=== PATIENT | male | born 1990 | race Caucasian/White ===

== ENCOUNTER 2020-03-04 09:07 | Emergency (ER) | payer OTHER ==
[2020-03-04] MEDS ORDERED: Metoclopramide 10 MG/2 ML SDV IVPUSH ONE (09:22)
[2020-03-04] MEDS ORDERED: HYDROmorphone 0.5 MG/0.5 ML Syringe IVPUSH ONE (09:22)
--- NOTE | 2020-03-04 09:29 | EDM.PDOC ---
ED HPI GENERAL MEDICAL PROBLEM - General Chief Complaint: Abdominal Pain Stated Complaint: VOMITING AND ABDOMINAL PAIN Time Seen by Provider: 03/04/20 09:24 Source of Information: Reports: Patient History Limitations: Reports: No Limitations - History of Present Illness INITIAL COMMENTS - FREE TEXT/NARRATIVE: 29-year-old male presents to the ED with recurrent nausea and vomiting. He states illness started on , March 02. Vomited throughout the day and he was seen at [facility] in [place] ER where he was given IV fluids and Zofran. He states he did better yesterday although he did not have much of an appetite he did keep down one hot dog. He had a normal bowel movement this morning without blood. Emesis is dark bilious in color. Pain is primarily in the epigastrium and lower retrosternal area from vomiting so much. Does not believe that he got into any bad food. No fever chills. No cough or sputum production no sinus congestion to suggest COVID-19 illness. Onset: Sudden Onset Date: 03/02/20 (Nausea and vomiting almost all day . Treated with IV fluids and Zofran in [facility] emergency room. Was feeling somewhat better yesterday he did manage to keep down one hot dog. Nausea vomiting getting started again this morning) Duration: Hour(s):, Intermittent Location: Reports: Abdomen (Recurrent nausea and vomiting of bilious material dark brown in color) Quality: Reports: Ache, Burning (Mostly at the pit of his stomach epigastrium and lower retrosternal area) Severity: Moderate Improves with: Reports: Rest Worsens with: Reports: Other Context: Reports: Other (Spontaneous nausea and vomiting). Denies: Activity, Exercise (Was trying to eat drink or vomit again.), Lifting, Sick Contact, Trauma Associated Symptoms: Reports: Loss of Appetite, Malaise, Nausea/Vomiting. Denies: Confusion, Chest Pain, Cough, cough w sputum, Diaphoresis, Fever/Chills, Rash, Seizure, Shortness of Breath, Syncope Treatments S[employer]ER [employer]ER: Reports: Other (see below) (Nothing will stay down.) Bilateral Upper Abdomen Pain Score (Numeric/FACES): 6 - Related Data Allergies Allergy/AdvReac Type Severity Reaction Status Date / Time amoxicillin Allergy Severe Cannot Verified 03/04/20 09:22 Remember Penicillins Allergy Severe Cannot Verified 03/04/20 09:22 Remember Home Meds: Home Meds Ondansetron [Zofran ODT] 4 mg PO Q6HR PRN 03/04/20 [History] Social & Family History - Caffeine Use Caffeine Use: Reports: Energy Drinks, Tea - Recreational Drug Use Recreational Drug Use: Yes Recreational Drug Type: Reports: Marijuana/Hashish - Living Situation & Occupation Living situation: Reports: Single ED ROS GENERAL - Review of Systems Review Of Systems: See Below Constitutional: Reports: Chills, Malaise, Weakness, Fatigue, Decreased Appetite, Weight Loss. Denies: Fever HEENT: Reports: No Symptoms Respiratory: Reports: No Symptoms Cardiovascular: Reports: No Symptoms Endocrine: Reports: Fatigue GI/Abdominal: Reports: Abdominal Pain, Nausea, Vomiting (Intractable nausea and vomiting). Denies: Constipation, Diarrhea (Epigastric lower retrosternal pain from vomiting so much.), Hematemesis, Hematochezia ( with bilious emesis.) : Reports: Other Musculoskeletal: Reports: No Symptoms (Urine is dark in color.) Skin: Reports: No Symptoms Neurological: Reports: Dizziness (Stands up), Weakness. Denies: Confusion, Headache ( quickly.), Numbness, Pre-Existing Deficit, Seizure, Syncope, Tingling, Tremors, Trouble Speaking, Difficulty Walking Psychiatric: Reports: No Symptoms Hematologic/Lymphatic: Reports: No Symptoms Immunologic: Reports: No Symptoms ED EXAM, GI/ABD - Physical Exam Exam: See Below Exam Limited By: No Limitations General Appearance: Alert, WD/WN, Mild Distress, Other (Temperature is 36.9. Heart rate 58 and sinus respiratory is 18 with O2 sats 100% room air BP 133/80.) Eyes: Bilateral: Normal Appearance (No scleral icterus or blepharal pallor.) Throat/Mouth: Other Head: Atraumatic (Tongue is mildly dry.), Normocephalic Neck: Normal Inspection, Supple, Non-Tender, Full Range of Motion. No: Carotid Bruit, Lymphadenopathy (L), Lymphadenopathy (R) Respiratory/Chest: No Respiratory Distress, Lungs Clear, Normal Breath Sounds, No Accessory Muscle Use Cardiovascular: Normal Peripheral Pulses, Regular Rate, Rhythm, No Edema, No Gallop, No Murmur, No Rub GI/Abdominal Exam: Normal Bowel Sounds, Soft, No Organomegaly, No Mass, Pelvis Stable, Tender (Tender in the epigastrium only with no rebound or guarding). No: Guarding, Rigid, Rebound Back Exam: Normal Inspection, Full Range of Motion. No: CVA Tenderness (L), CVA Tenderness (R) Extremities: Normal Inspection, Normal Range of Motion, Non-Tender Neurological: Alert, Oriented, CN II-XII Intact, Normal Cognition Psychiatric: Normal Affect, Anxious Skin Exam: Warm, Dry, Intact, Normal Color, No Rash Course - Vital Signs Last Recorded V/S: Last Vital Signs Temp 36.9 C 03/04/20 09:15 Pulse 58 L 03/04/20 09:15 Resp 18 03/04/20 09:15 BP 133/80 03/04/20 09:15 Pulse Ox 100 03/04/20 09:15 - Orders/Labs/Meds Orders: Active Orders 24 hr Category Date Time Status Dextrose 5%-Lactated Ringers 1,000 ml Med 03/04/20 09:30 Active IV ASDIRECTED Dextrose 5%-Lactated Ringers 1,000 ml Med 03/04/20 11:00 Active IV ASDIRECTED Medication Orders Dextrose/Lactated Ringer's (Dextrose 5%-Lactated Ringers) 1,000 mls @ 999 mls/hr IV ASDIRECTED MARJORIE Last Admin: 03/04/20 09:35 Dose: 999 mls/hr Documented by: OLAMIDE Dextrose/Lactated Ringer's (Dextrose 5%-Lactated Ringers) 1,000 mls @ 999 mls/hr IV ASDIRECTED MARJORIE Last Admin: 03/04/20 11:34 Dose: 999 mls/hr Documented by: OLAMIDE Labs: Laboratory Tests 03/04/20 03/04/20 Range/Units 09:42 09:42 WBC 6.94 (4.23-9.07) K/mm3 RBC 5.36 (4.63-6.08) M/mm3 Hgb 15.8 (13.7-17.5) gm/dl Hct 45.4 (40.1-51.0) % MCV 84.7 (79.0-92.2) fl MCH 29.5 (25.7-32.2) pg MCHC 34.8 (32.2-35.5) g/dl RDW Std Deviation 41.7 (35.1-43.9) fL Plt Count 262 (163-337) K/mm3 MPV 10.9 (9.4-12.3) fl Neut % (Auto) 65.9 (34.0-67.9) % Lymph % (Auto) 24.1 (21.8-53.1) % [place] % (Auto) 9.1 (5.3-12.2) % Eos % (Auto) 0.4 L (0.8-7.0) Baso % (Auto) 0.4 (0.1-1.2) % Neut # (Auto) 4.57 (1.78-5.38) K/mm3 Lymph # (Auto) 1.67 (1.32-3.57) K/mm3 [place] # (Auto) 0.63 (0.30-0.82) K/mm3 Eos # (Auto) 0.03 L (0.04-0.54) K/mm3 Baso # (Auto) 0.03 (0.01-0.08) K/mm3 Sodium 140 (136-145) mEq/L Potassium 3.7 (3.5-5.1) mEq/L Chloride 102 (98-107) mEq/L Carbon Dioxide 23 (21-32) mEq/L Anion Gap 18.7 H (5-15) BUN 10 (7-18) mg/dL Creatinine 1.0 (0.7-1.3) mg/dL Est Cr Clr Drug Dosing TNP Estimated GFR (MDRD) > 60 (>60) mL/min BUN/Creatinine Ratio 10.0 L (14-18) Glucose 95 (74-106) mg/dL Calcium 9.1 (8.5-10.1) mg/dL Total Bilirubin 1.4 H (0.2-1.0) mg/dL AST 23 (15-37) U/L ALT 25 (16-63) U/L Alkaline Phosphatase 67 (46-116) U/L C-Reactive Protein 0.5 (<1.0) mg/dL Total Protein 7.7 (6.4-8.2) g/dl Albumin 4.1 (3.4-5.0) g/dl Globulin 3.6 gm/dL Albumin/Globulin Ratio 1.1 (1-2) Lipase 90 (73-393) U/L Meds: Medications Generic Name Dose Route Start Last Admin Trade Name Ayanq PRN Reason Stop Dose Admin Dextrose/Lactated Ringer's 1,000 mls @ 999 mls/hr 03/04/20 09:30 03/04/20 09:35 Dextrose 5%-Lactated Ringers IV 999 mls/hr ASDIRECTED MARJORIE Administration Dextrose/Lactated Ringer's 1,000 mls @ 999 mls/hr 03/04/20 11:00 03/04/20 11:34 Dextrose 5%-Lactated Ringers IV 999 mls/hr ASDIRECTED MARJORIE Administration Discontinued Medications Generic Name Dose Route Start Last Admin Trade Name Ayanq PRN Reason Stop Dose Admin Diphenhydramine HCl 25 mg 03/04/20 10:34 03/04/20 10:42 Benadryl IVPUSH 03/04/20 10:35 25 mg ONETIME ONE Administration Hydromorphone HCl 0.5 mg 03/04/20 09:22 03/04/20 09:36 Dilaudid IVPUSH 03/04/20 09:23 0.5 mg ONETIME ONE Administration Metoclopramide HCl 10 mg 03/04/20 09:22 03/04/20 09:36 Reglan IVPUSH 03/04/20 09:23 10 mg ONETIME ONE Administration Ondansetron HCl 4 mg 03/04/20 10:34 03/04/20 10:42 Zofran IVPUSH 03/04/20 10:35 4 mg ONETIME ONE Administration - Radiology Interpretation Free Text/Narrative:: 29-year-old male presents to the ED with recurrent nausea and vomiting. Illness started suddenly , March 02. He vomited most of the day and was seen through the ED at [facility] in [place] and treated with IV fluids and sent home with Zofran 4 mg sublingual. He states he did better yesterday and was able to keep down the hot dog. Vomiting with associated nausea started again this morning and is not able to keep anything down. Had a normal formed bowel movement without blood this morning. Complains of diffuse pain primarily in the epigastrium burning and intensity. Benign abdominal examination. Vital signs stable he denies drinking any alcohol. Plan he will be asked for coronavirus screen has a send out as many young people are presenting with GI symptoms first. Plan will be to give him IV D5 Ringer's lactate at open. Routine labs CBC and CMP to be performed and a CRP and a lipase. Given Reglan 10 mg IV with Dilaudid 0.5 mg IV for pain relief. - Re-Assessments/Exams Free Text/Narrative Re-Assessment/Exam: 03/04/20 10:35 Patient is complaining of nausea in spite of receiving Reglan 10 mg IV 1 hour ago he is still complaining of nausea. We will give him Benadryl 25 mg IV and Zofran 4 mg IV. 03/04/20 10:51 White count is normal at 6.94. Auto differential shows 66% neutrophils. Hemoglobin 15.8 with hematocrit of 45.4. Platelet counts 262,000. Sodium 140 with a potassium of 3.7 chloride 102 with a bicarb of 23. Anion gap is elevated at 18.7. BUN is 10 with a creatinine of 1.0. GFR is greater than 60. Glucose is 95 with a calcium of 9.1. Total bilirubin is elevated at 1.4 AST is 23 ALT is 25 alk phos is a 67. 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 C-reactive protein 0.5 serum lipase is 98 total protein is 7.7 with an albumin fraction of 4.1. He will require 2 L of fluid to return his anion gap to normal. 03/04/20 11:48 lipase is returned normal at 90. 03/04/20 12:51 and is feeling better after completing second liter of IV fluids. He does have some Zofran at home and has a prescription for refill if needed. Advised clear fluid diet today Zofran every 4 to 6 hours necessary for nausea relief. Departure - Departure Time of Disposition: 12:51 Disposition: Home, Self-Care 01 Condition: Fair Clinical Impression: Viral gastritis, Nausea and vomiting in adult - Discharge Information *PRESCRIPTION DRUG MONITORING PROGRAM REVIEWED*: Not Applicable *COPY OF PRESCRIPTION DRUG MONITORING REPORT IN PATIENT ABBIE: Not Applicable Instructions: Nausea and Vomiting, Adult, Viral Gastroenteritis, Adult, [id number] Referrals: PCP,None [Primary Care Provider] - Forms: ED Department Discharge Additional Instructions: Evaluation in the emergency room this morning in regards to recurrent bout of vomiting followed by vomiting 2 days ago. It appears that you have a viral gastritis which means inflamed stomach that continues to want to make you have nausea and vomiting. No diarrhea has occurred. You were found to be volume depleted and received 2 L of IV fluids to correct fluid imbalance and dehydration. You were given medications Reglan 10 mg IV and Zofran 4 mg IV with Benadryl 25 mg for nausea relief. At home you should stay on a clear fluid diet such as Gatorade Powerade ideally's 5 to 6 ounces sipped per hour to maintain hydration. When hungry try soda crackers first and if well-tolerated may advance to white bread with jam on it. May then try soup such as turkey rice chicken noodle etc. Advance diet as tolerated. Use Zofran 4 mg under the tongue every 4-6 hours necessary for nausea relief. Usually this type of illness lasts 72 hours and you will get better. Sepsis Event Note (ED) - Evaluation Sepsis Screening Result: No Definite Risk - Focused Exam Vital Signs: Vital Signs Temp Pulse Resp BP Pulse Ox 03/04/20 09:15 36.9 C 58 L 18 133/80 100 - My Orders Last 24 Hours: My Active Orders 03/04/20 09:30 Dextrose 5%-Lactated Ringers 1,000 ml IV ASDIRECTED 03/04/20 11:00 Dextrose 5%-Lactated Ringers 1,000 ml IV ASDIRECTED - Assessment/Plan Last 24 Hours: My Active Orders 03/04/20 09:30 Dextrose 5%-Lactated Ringers 1,000 ml IV ASDIRECTED 03/04/20 11:00 Dextrose 5%-Lactated Ringers 1,000 ml IV ASDIRECTED
[2020-03-04] MEDS ORDERED: Dextrose 5%-Lactated Ringers 1,000 ML IV SCH ×2 (09:30→11:00)
[2020-03-04] MEDS ORDERED: diphenhydrAMINE 50 MG/ML SDV IVPUSH ONE (10:34)
[2020-03-04] MEDS ORDERED: Ondansetron 4 MG/2 ML SDV IVPUSH ONE (10:34)
== END 2020-03-04 13:08 | disposition home or self-care (01) ==
LOC: JD.ED 09:07
DX: A08.4 Viral intestinal infection, unspecified (principal); Z88.1 Allergy status to other antibiotic agents; Z88.0 Allergy status to penicillin
CPT/HCPCS: 36415; 80053; 83690; 85025; 86140; 96374; 96375; 99284; J1170; J1200; J2405; J2765; J7121; 99283